=== PATIENT | male | born 2005 | race Hispanic/Latino ===

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

== ENCOUNTER → 2024-02-10 | Outpatient (CLI) | payer OTHER ==
[2024-02-10 12:44] LABS: ALBUMIN 3.9 G/DL (3.2-5.2); ALKALINE PHOSPHATASE 117 U/L (40-129); ALT/SGPT 20 U/L (7.0-40); AST/SGOT 11 U/L (<34); BILIRUBIN,TOTAL 0.6 MG/DL (0.3-1.2); BLOOD UREA NITROGEN 13 MG/DL (9-23); CALCIUM LEVEL 10.3 MG/DL (8.5-10.1); CARBON DIOXIDE LEVEL 29 MMOL/L (20-31); CHLORIDE LEVEL 105 MMOL/L (98-107); CHOLESTEROL LEVEL 156 MG/DL (<200); CHOLESTEROL RISK RATIO 5.79 (<5); CREATININE FOR GFR 1.02 MG/DL (0.70-1.30); GLUCOSE, FASTING 88 MG/DL (60-100); HDL CHOLESTEROL 26.9 MG/DL (>40); LDL CHOLESTEROL 103.7 MG/DL (<100); NON-HDL-C 129.1 MG/DL; POTASSIUM SERUM 4.2 MMOL/L (3.5-5.1); SODIUM LEVEL 142 MMOL/L (136-145); TOTAL PROTEIN 7.4 G/DL (5.7-8.2); TRIGLYCERIDES LEVEL 127 MG/DL (<150)
[2024-02-10 12:45] LABS: FREE T4 1.35 NG/DL (0.83-1.43)
[2024-02-10 12:46] LABS: THYROID STIMULATING HORMONE 1.284 uIU/ML (0.48-4.17); TOTAL 25(OH) VITAMIN D 8.2 NG/ML (20.0-100.0)
== END ==
LOC: M LAB 11:38
PROVIDERS: ATTEND Specialist
DX: Z00.00 Encounter for general adult medical examination without abnormal findings (principal)